=== PATIENT | female | born 1945 | race Caucasian/White ===

== ENCOUNTER 2020-09-09 05:38 | Emergency (ER) | payer MEDICARE ==
[~2020-09-09] VITALS: Ht 165.1 cm; Wt 82.0 kg
--- NOTE | 2020-09-09 05:59 | NUR ---
PT HAS C/O VAGINAL DISCHARGE. PT ON MONITOR WITH PT VSS. PT PROVIDED BLANKET. PT A/O X4 WITH UNLABORED BREATHING
--- NOTE | 2020-09-09 06:10 | NUR ---
RECEIVED REPORT FROM TASK RN. MICHAEL ALARCON. PT WALKED TO BATHROOM AND BACK W/O INCIDENT. CALL LIGHT W/IN REACH.
--- NOTE | 2020-09-09 07:34 | NUR ---
Pt up to bathroom w/ tech and back w/o incident. Pt being d/c'd, waiting for [facility].
--- NOTE | 2020-09-09 08:18 | NUR ---
PT WALKED TO RESTROOM AND BACK W/O INCIDENT. HOOKED BACK UP TO MONITORS. MICHAEL ALARCON.
[2020-09-09 08:19] VITALS: BP 182/57
--- NOTE | 2020-09-09 08:25 | NUR ---
Patient given discharge instructions and they have confirmed that they understand the instructions. Patient ambulatory with steady gait. Waiting for [facility] which pt is aware of. She asked who was going to help w/ prescription and pt was asked who helps her when she is home, she said her son. I told her then to have her son drop off prescription and pick it up. matheus mujica, call light w/in reach, side rail upx2.
--- NOTE | 2020-09-09 09:00 | NUR ---
SBAR REPORT GIVEN TO PATRICE POMPA. PT IS JUST WAITING FOR [employer].
--- NOTE | 2020-09-09 09:21 | NUR ---
REPORT FROM BETO, ASSUME CARE OF PT AT THIS TIME. PT AWAITING [facility] HOME. PT ASSISTED WITH DRESSING AND GETTING READY FOR DC. SNACKS PROVIDED, AWAITING ETA [facility].
== END 2020-09-09 09:46 | disposition home or self-care (01) ==
LOC: ED 07:32
DX: B37.3 Candidiasis of vulva and vagina (principal); E11.9 Type 2 diabetes mellitus without complications; J44.9 Chronic obstructive pulmonary disease, unspecified
CPT/HCPCS: 82962; 99283